=== PATIENT | male | born 1980 | race African-American/Black ===

== ENCOUNTER 2016-12-07 14:34 | Emergency (ER) | payer OTHER ==
[~2016-12-07] VITALS: Ht 182.9 cm; Wt 112.5 kg
[2016-12-07] MEDS ORDERED: NAPROSYN500 MG PO (15:06)
[2016-12-07 15:16] VITALS: BP 142/83
== END 2016-12-07 15:30 | disposition home or self-care (01) ==
LOC: ER 14:34
DX: S09.90XA Unspecified injury of head, initial encounter (principal); W22.8XXA Striking against or struck by other objects, initial encounter; Y93.89 Activity, other specified; Y92.89 Other specified places as the place of occurrence of the external cause; Y99.0 Civilian activity done for income or pay

== ENCOUNTER 2017-01-26 15:24 | Inpatient (IN) | payer OTHER ==
[~2017-01-26] VITALS: Ht 182.9 cm; Wt 117.5 kg
--- NOTE | ~2017-01-26 | H ---
[facility] [place] [address] [place] [address] HISTORY AND PHYSICAL Name: GYPSY CONWAY Room #: 407-P [facility] IN M.R.#: [id number] Admission: 01/26/17 Attend Phys: Getachew Humphreys MD Discharge: 01/27/17 Date of : 84 Report #: [id number] THIS REPORT FOR: //name// CC: [facility] physician/PCP Dhaval Coy DATE OF SERVICE: 01/26/2017 CHIEF COMPLAINT: Rectal bleeding. HISTORY OF PRESENT ILLNESS: The patient is a 36-year-old male with no significant medical history who presented to the Emergency Room complaining of rectal bleeding. He started noticing dark red blood coming from his rectum today. No history of any abdominal pain. No nausea or vomiting. No fever or chills. No mucus in the stool. No dizziness. PAST MEDICAL HISTORY: Not significant. PAST SURGICAL HISTORY: None. ALLERGIES: No known drug allergy. HOME MEDICATIONS: None. FAMILY HISTORY: History of hypertension. REVIEW OF SYSTEMS: CONSTITUTIONAL: No recent weight loss, weight gain. No fever or chills. EYES: No change in vision. THROAT: Denies any sore throat. CARDIOVASCULAR: No chest pain, dizziness, palpitations. RESPIRATORY: No cough or expectoration. GASTROINTESTINAL: As above. GENITOURINARY: No dysuria, hematuria. NEUROLOGIC: No focal numbness or weakness of the extremities. PSYCHIATRIC: No anxiety or depression. The 12-point review of system is negative other than the positive and negative dictated in the history of present illness and the review of system. PHYSICAL EXAMINATION: VITAL SIGNS: Reveal blood pressure is 133/81, heart rate of 63 per minute, afebrile. GENERAL: The patient is awake and alert, not in acute respiratory distress. HEENT: Eyes: Pupils equal, reactive to light, nonicteric, conjunctivae. Throat appears normal. [facility] [address] [place] [address] HISTORY AND PHYSICAL Name: GYPSY CONWAY Room #: 407-P [facility] IN [facility]#: [id number] Admission: 01/26/17 Attend Phys: Getachew Humphreys MD Discharge: 01/27/17 Date of : 84 Report #: [id number] NECK: Supple, no JVD, no bruit, no lymphadenopathy. CARDIOVASCULAR SYSTEM: S1, S2, negative S3, no murmur. CHEST: Bilateral air entry present. Clear on auscultation. ABDOMEN: Soft, bowel sounds present, no mass, no organomegaly, no tenderness. PERIPHERY: No pedal edema. No calf tenderness. Dorsalis pedis 1+. NEUROLOGICAL: No gross motor or sensory deficit. LABORATORY DATA: Reviewed. His UA is unremarkable except for trace blood. His white count is 6.9, normal hemoglobin and hematocrit, platelets slightly low at 126. BUN and creatinine are normal. AST and ALT are within normal limit. Lipase is 386. CT of the abdomen and pelvis was unremarkable. Stool for occult blood was positive. ASSESSMENT: 1. Lower gastrointestinal bleed, etiology unknown. CT scan of the abdomen and pelvis is unremarkable. GI has been consulted. The patient is scheduled for colonoscopy tomorrow. We will obtain serial hemoglobin and hematocrit. 2. Deep venous thrombosis prophylaxis. He will be on sequential compression device on the leg for deep venous thrombosis prophylaxis. Treatment plan has been explained to the patient in detail. <ELECTRONICALLY SIGNED> By: Getachew Humphreys MD 01/31/17 0842 [id number] Getachew Humphreys MD /nt
--- NOTE | ~2017-01-26 | P ---
[facility] [place] [address] PROCEDURE REPORT Name: GYPSY CONWAY Room #: 407-P [facility] IN M.R.#: [id number] Admission: 01/26/17 Attend Phys: Getachew Humphreys MD Discharge: 01/27/17 Date of : 84 Report #: [id number] THIS REPORT FOR: //name// CC: [facility] physician/PCP Getachew Humphreys MD DATE OF SERVICE: 01/27/2017 PROCEDURE: Colonoscopy with biopsy. PATIENT OF: Getachew Humphreys MD INDICATION FOR PROCEDURE: This patient experienced sudden onset of painless dark red blood per rectum with clots. He came to the Emergency Room for evaluation. Colonoscopy is being performed to evaluate this dark red blood source. Informed consent for this procedure was obtained prior to the administration of any medication. The risks of the procedure, which include bleeding, perforation, infection, complications of sedation and the possibility I could miss something have been explained to the patient and he has indicated his consent by signing. Propofol was slowly titrated before and during this procedure for patient comfort by the anesthesia service. The [place]kersn colonoscope was introduced through the anal sphincter and advanced under direct visualization to the terminal ileum. Findings are noted on withdrawal of the scope. The terminal ileum mucosa appears normal. Cecum, normal mucosa. Ascending colon, normal mucosa. Retroflex view in the ascending colon did not reveal any abnormalities. Hepatic flexure, normal mucosa. Transverse colon: In the proximal transverse colon, there is a single small diverticulum, nonbleeding. There is also in the proximal transverse colon, a 3 mm sessile polyp that was removed in toto with the regular biopsy forceps and sent to pathology lab. Good hemostasis was noted after that polypectomy. The remaining transverse colonic mucosa appears normal. Splenic flexure, normal mucosa. Descending colon, normal mucosa. Sigmoid colon: At 35 cm in the sigmoid colon, there is a small 3-4 mm polyp removed in toto with the regular biopsy forceps and sent to pathology lab. Good hemostasis was noted after that polypectomy. At 30 cm in the sigmoid colon, there is a single tiny uncomplicated diverticulum, nonbleeding. At 30 cm in the sigmoid colon, there is also a third polyp that is 3 mm in size and it was removed in toto with the regular biopsy forceps and sent to pathology lab. Good hemostasis was noted after that polypectomy as well. The remaining sigmoid mucosa appeared normal. Rectum, normal mucosa. Retroflex view did not reveal any abnormalities, but as I was withdrawing the scope slowly through the anal canal, I could see that there was an internal hemorrhoid that was split open with a [facility] [address] [place] [address] PROCEDURE REPORT Name: GYPSY CONWAY Room #: 407-P [facility] IN M.R.#: [id number] Admission: 01/26/17 Attend Phys: Getachew Humphreys MD Discharge: 01/27/17 Date of : 84 Report #: [id number] clot inside the internal hemorrhoid, it is nonbleeding at the present time, but it was most likely the source of his acute blood loss. The scope was withdrawn. The patient went to the recovery area in stable condition. He tolerated the procedure well. IMPRESSION: 1. Internal hemorrhoid with clot is the likely source of the patient's blood loss. It is no longer bleeding. I would recommend that he stay on stool softeners, so he does not have to strain. He can use warm Sitz baths. 2. Small uncomplicated nonbleeding diverticula in proximal transverse and at 30 cm. 3. Three small polyps, size 3-4 mm, removed as above from the proximal transverse and from the sigmoid. RECOMMENDATIONS: To await the path report. The patient to use the stool softeners as mentioned above and be on a high fiber diet, can also use Sitz baths if this causes him any discomfort. Thank you very much once again for allowing me to participate in his care, Dr. Humphreys. I think that he could be safely discharged home tonight. <ELECTRONICALLY SIGNED> By: Maia Castillo DO 01/28/17 [id number] Maia Castillo DO /nt
--- NOTE | ~2017-01-26 | S ---
[facility] [place] [address] [place] [address] SURGICAL PATH RPT PROCEDURE Name: ZAC ARNETT Room #: 407-P [facility] IN M.R.#: [id number] Admission: 01/26/17 Date of : 84 Discharge: 01/27/17 Report #: [id number] Path Case #: [id number] PATHOLOGY REPORT COLLECTION DATE: 01/27/2017 RECEIVED DATE: 01/27/2017 SUBMITTING PHYS: Dr. Maia Castillo OTHER PHYS: Dr. Getachew Humphreys SPECIMEN(S) RECEIVED: A.Proximal transverse colon polyp B.Colon polyp at 35 cm C.Colon polyp at 30 cm * * * * * * * * * * * * FINAL DIAGNOSIS: A. Colonic mucosa "proximal transverse colon polyp": - Polypoid colonic mucosa consistent with early hyperplastic polyp. - There is no evidence of adenomatous change, high-grade dysplasia or malignancy. B. Colonic mucosa "colon polyp at 35 cm": - Hyperplastic polyp. - There is no evidence of adenomatous change, high-grade dysplasia or malignancy. C. Colonic mucosa "polyp at 30 cm": - Hyperplastic polyp. - There is no evidence of adenomatous change, high-grade dysplasia or malignancy. (SHA:tano; 01/28/2017) PATHOLOGIST: David Howard M.D. REPORT ELECTRONICALLY SIGNED BY: David Howard M.D. DATE/TIME: 01/28/2017 13:49 * * * * * * * * * * * * GROSS PATHOLOGY: A. Received in formalin labeled "Zac Arnett and proximal transverse colon polyp biopsy," is a segment of packer soft tissue measuring 0.5 x 0.2 cm in maximum dimension. The specimen is submitted entirely in cassette A1. B. Received in formalin labeled "Zac Arnett and polyp 35 cm biopsy," is a segment of packer soft tissue measuring 0.4 x 0.2 cm in maximum dimension. The specimen is submitted entirely in cassette B1. C. Received in formalin labeled "Zac Arnett and polyp 30 cm biopsy," is a segment of packer soft tissue measuring 0.4 x 0.2 cm in maximum dimension. The specimen is submitted entirely in cassette C1. [address] [address] SURGICAL PATH RPT PROCEDURE Name: ZAC ARNETT Room #: 407-P [facility] IN M.R.#: [id number] Admission: 01/26/17 Date of : 84 Discharge: 01/27/17 Report #: [id number] Path Case #: [id number] (SWS; 01/27/2017) CLINICAL HISTORY: None provided INITIAL CPT CODE(S): A; 32672 B; 64944 C; 52453 Professional services performed by [facility] at [address] , [place] [address] Technical services performed by [facility] at [address] [place] [address], [address], [place] [address]. [facility] [address] [place] [id number] PHONE: [phone] DIRECTOR: Maik Bauer M.D. * * * END OF REPORT * * *
[~2017-01-26 15:24] MED LIST: NAPROSYN500 MG PO
[2017-01-26 15:26] VITALS: BP 139/89
[2017-01-26 16:12] LABS: ABSOLUTE NEUTROPHILS 2.6 thou/uL (1.4-8.2); BASOPHILS 1.1 % (0.0-2.0); HEMATOCRIT 49.2 % (42.0-52.0); HEMOGLOBIN 16.3 gm/dL (14.0-18.0); LYMPHOCYTES 53.5 % (24.0-44.0); MCH 29.1 pg (26.0-34.0); MCHC 33.2 g/dL (28.0-37.0); MCV 87.6 fL (80.0-100.0); MONOCYTES 5.2 % (1.0-8.0); POLYS 38.2 % (36.0-66.0); RBC 5.62 mil/uL (4.50-6.00); RDW 14.2 % (10.5-14.5); WBC 6.9 thou/uL (4.0-11.0)
[2017-01-26 16:13] LABS: MANUAL DIFF NO
[2017-01-26 16:22] LABS: ANION GAP 6 mmol/L (7-16); BUN 12 mg/dL (7-18); CALCIUM 9.1 mg/dL (8.5-10.1); CHLORIDE 107 mmol/L (98-107); CO2 29 mmol/L (21-32); CREATININE 1.1 mg/dL (0.7-1.3); GLUCOSE 90 mg/dL (74-106); POTASSIUM 4.1 mmol/L (3.5-5.1); SODIUM 142 mmol/L (136-145)
[2017-01-26 16:25] LABS: APTT 27.5 Seconds (24.5-32.8); PROTIME 10.2 Seconds (9.3-11.4)
[2017-01-26 16:29] LABS: ALKALINE PHOSPHATASE 94 U/L (46-116); DIRECT BILIRUBIN < 0.1 mg/dL (<0.1-0.3); PLATELET COUNT 126 thou/uL (150-400); SGOT 22 U/L (15-37); SGPT 33 U/L (30-65); TOTAL BILIRUBIN 0.7 mg/dL (<0.1-1.0); TOTAL PROTEIN 7.3 g/dL (6.4-8.2)
[2017-01-26 16:31] LABS: LARGE PLATELETS FEW
[2017-01-26 16:36] LABS: URINE BILIRUBIN NEGATIVE (Negative); URINE BLOOD TRACE (Negative); URINE COLOR YELLOW; URINE GLUCOSE-RANDOM* NEGATIVE (Negative); URINE KETONES NEGATIVE (Negative); URINE NITRITE NEGATIVE (Negative); URINE PROTEIN (DIPSTICK) NEGATIVE (Negative); URINE SPECIFIC GRAVITY 1.025 (1.003-1.035)
[2017-01-26 17:20] VITALS: BP 133/81
[2017-01-26 19:22] VITALS: BP 149/89
[2017-01-26 20:01] VITALS: BP 136/81
[2017-01-27 02:55] LABS: HEMATOCRIT 47.2 % (42.0-52.0); HEMOGLOBIN 15.6 gm/dL (14.0-18.0); MCH 28.9 pg (26.0-34.0); MCV 87.6 fL (80.0-100.0); PLATELET COUNT 132 thou/uL (150-400); RBC 5.38 mil/uL (4.50-6.00); RDW 14.3 % (10.5-14.5); WBC 7.5 thou/uL (4.0-11.0)
[2017-01-27 02:59] LABS: MANUAL DIFF YES
[2017-01-27 03:01] LABS: CALCIUM 8.2 mg/dL (8.5-10.1); CREATININE 0.9 mg/dL (0.7-1.3); POTASSIUM 3.8 mmol/L (3.5-5.1)
[2017-01-27 03:02] LABS: MAGNESIUM 1.9 mg/dL (1.8-2.4)
[2017-01-27 03:53] LABS: ABSOLUTE NEUTROPHILS 2.3 thou/uL (1.4-8.2); ATYPICAL LYMPHS 2 %; LARGE PLATELETS OCCASIONAL; TOTAL CELL COUNT 100
[2017-01-27 03:58] VITALS: BP 121/75
[2017-01-27 08:00] VITALS: BP 118/73
[2017-01-27 16:00] VITALS: BP 129/81
[2017-01-27 16:23] VITALS: BP 129/81
[2017-01-27 16:32] VITALS: BP 129/81
== END 2017-01-27 16:53 | disposition home or self-care (01) | DRG 394 ==
LOC: ER 15:24 → 4N 19:22 → ER 19:22 → 4N 19:28
PROVIDERS: Internal Medicine; Nurse Practitioner
PROC: 0DBN8ZX Excision of Sigmoid Colon, Via Natural or Artificial Opening Endoscopic, Diagnostic (ICD-10-PCS; principal; 2017-01-27)
PROC: 0DBL8ZX Excision of Transverse Colon, Via Natural or Artificial Opening Endoscopic, Diagnostic (ICD-10-PCS; principal; 2017-01-27)
DX: K64.8 Other hemorrhoids (principal); K62.5 Hemorrhage of anus and rectum; K63.5 Polyp of colon; K57.90 Diverticulosis of intestine, part unspecified, without perforation or abscess without bleeding; Z82.49 Family history of ischemic heart disease and other diseases of the circulatory system; Z28.21 Immunization not carried out because of patient refusal
CPT/HCPCS: 10091; 62110; 62900